=== PATIENT | female | born 1980 | race Caucasian/White ===

== ENCOUNTER 2022-03-27 12:27 | Emergency (ER) | payer OTHER, SELFPAY ==
[2022-03-27 12:41] VITALS: BP 128/80; PULSE 96; RESP 18; TEMP 36.6; O2SAT 100
--- NOTE | 2022-03-27 13:39 | ED.WOUNDLAC ---
HPI - Wound/Laceration General Chief Complaint: Wound/Laceration <WATSON Ornelas Last Filed: 03/27/22 18:07> Stated Complaint: lac to left forearm <WATSON Ornelas Last Filed: 03/27/22 18:07> Time Seen by Provider: 03/27/22 13:20 <WATSON Ornelas Last Filed: 03/27/22 18:07> History of Present Illness HPI narrative: Patient is a 42-year-old female here for evaluation of a laceration sustained to her left forearm from a pair of scissors about 2 and half hours ago. Patient states that she was grooming a dog when she lost control the scissors and they scraped her forearm. Patient applied Steri-Strips but her boss wanted her to come to the ED. Her tetanus is up-to-date as of 2 years ago. No numbness or tingling of the difficulty moving the hand or arm. <WATSON Ornelas Last Filed: 03/27/22 18:07> Related Data Home Medications: Home Medications Medication Instructions Recorded Confirmed No Home Medications 03/27/22 03/27/22 <WATSON Ornelas Last Filed: 03/27/22 18:07> Allergies/Adverse Reactions: Allergies Allergy/AdvReac Type Severity Reaction Status Date / Time codeine Allergy Itching Verified 03/27/22 13:22 <WATSON Ornelas Last Filed: 03/27/22 18:07> Review of Systems Review of Systems: Gen: Denies fevers or chills Eyes: Denies eye pain or visual change ENT: Denies congestion Respiratory: Denies shortness of breath or cough CV: Denies chest pain or palpitations GI: Denies abdominal pain nausea, emesis or diarrhea denies burning, urgency, frequency or hematuria Musculoskeletal: Denies back pain or muscle pain Neuro: Denies numbness, tingling, weakness or focal weakness Skin: Reports laceration Except as documented, all other systems reviewed and negative <WATSON Ornelas Last Filed: 03/27/22 18:07> Exam Narrative: Gen: Alert, oriented, no acute distress Eyes: EOMI, no icterus Pulm: Respirations even and unlabored, symmetric thorax expansion, no audible stridor or visible cyanosis CV: Regular rate per telemetry GI: No distension, no voluntary/involuntary guarding Neuro: AOx4, moves all extremities without apparent difficulty or weakness, follows commands Skin: Superficial 3 cm linear laceration to the left forearm with no active bleeding Psych: Normal mood/affect, insight/judgement good, adequate fund of knowledge, recent/remote memory intact <Guillermina Leong PA-C - Last Filed: 03/27/22 18:07> Course TRIM INSTALLER/PA Physician Supervision For this patient encounter, I reviewed the TRIM INSTALLER or PA documentation, treatment plan, and medical decision making <Javi Ambriz MD - Last Filed: 03/27/22 21:00> Vital Signs Vital signs: Vital Signs Temperature 97.9 F 03/27/22 12:41 Pulse Rate 96 03/27/22 12:41 Respiratory Rate 18 03/27/22 12:41 Blood Pressure 128/80 03/27/22 12:41 Pulse Oximetry 100 03/27/22 12:41 Oxygen Delivery Room Air 03/27/22 12:41 Temperature 97.9 F 03/27/22 12:41 Pulse Rate 96 03/27/22 12:41 Respiratory Rate 18 03/27/22 12:41 Blood Pressure 128/80 03/27/22 12:41 Pulse Oximetry 100 03/27/22 12:41 Oxygen Delivery Room Air 03/27/22 12:41 <Guillermina Leong PA-C - Last Filed: 03/27/22 18:07> Vital Signs Temperature 97.9 F 03/27/22 12:41 Pulse Rate 96 03/27/22 12:41 Respiratory Rate 18 03/27/22 12:41 Blood Pressure 128/80 03/27/22 12:41 Pulse Oximetry 100 03/27/22 12:41 Oxygen Delivery Room Air 03/27/22 12:41 Temperature 97.9 F 03/27/22 12:41 Pulse Rate 96 03/27/22 12:41 Respiratory Rate 18 03/27/22 12:41 Blood Pressure 128/80 03/27/22 12:41 Pulse Oximetry 100 03/27/22 12:41 Oxygen Delivery Room Air 03/27/22 12:41 <Javi Ambriz MD - Last Filed: 03/27/22 21:00> Procedures Laceration Laceration 1: Date: 03/27/22 <Guillermina Pascal
== END 2022-03-27 14:50 | disposition home or self-care (01) ==
PROVIDERS: Emergency Provider Emergency Medicine
DX: S51.812A Laceration without foreign body of left forearm, initial encounter (principal); W27.2XXA Contact with scissors, initial encounter
CPT/HCPCS: 12002; 99282